=== PATIENT | male | born 1995 | race Caucasian/White ===

== ENCOUNTER 2020-07-16 09:27 | Outpatient (NON) | payer OTHER, SELFPAY ==
[2020-07-16 23:32] LABS: SARS-CoV-2 RNA PCR Negative
== END 2020-07-16 09:28 ==
LOC: ANHCOVIDDT 09:28
PROVIDERS: PCP Internal Medicine Geriatric Medicine; Visit Provider Internal Medicine Geriatric Medicine
DX: Z20.828 Contact with and (suspected) exposure to other viral communicable diseases (principal)
CPT/HCPCS: 87635; C9803; U0003

== ENCOUNTER 2023-03-19 00:05 | Emergency (ER) | payer OTHER, SELFPAY ==
[2023-03-19 00:07] VITALS: BP 136/95; PULSE 87; RESP 15; TEMP 36.6; O2SAT 98
--- NOTE | 2023-03-19 00:29 | ED.GENADULT ---
HPI - General Adult General Chief complaint: Wound/Laceration Stated complaint: cut finger Time Seen by Provider: 03/19/23 00:17 Source: patient Mode of arrival: ambulatory Limitations: no limitations History of Present Illness HPI narrative: This is a 27-year-old male who presents to the ED with chief complaint of a right index finger injury occurring just prior to arrival. Patient states he was placing a wire with a pocket knife when he accidentally cut the dorsum of his finger. Patient states that there was a lot of bleeding at the time and he bled through several Band-Aids. He then presented to the ER for further evaluation. Denies any numbness, weakness or any further site of pain or injury. Unsure of last tetanus shot. Related Data Allergies Allergy/AdvReac Type Severity Reaction Status Date / Time No Known Allergies Allergy Mild Verified 03/19/23 00:19 Review of Systems Review of Systems: All systems as dictated in HPI Exam Narrative: GENERAL: Well-appearing, well-nourished, and in no acute distress. HEAD: Normocephalic, atraumatic. EYES: PERRLA and EOMI. ENT: Nares clear, no rhinorrhea or epistaxis. Mucous membranes moist. Oropharynx without tonsillar hypertrophy exudate or other lesions. NECK: Supple. No adenopathy or masses. CHEST: No respiratory distress. Clear to auscultation. No wheezes rales or rhonchi HEART: Regular rate and rhythm. No murmur heard. Normal peripheral pulses. ABDOMEN: Soft, nontender, nondistended, normal active bowel sounds. MSK: Normal range of motion. No edema. SKIN: 1 cm laceration to the dorsum of the right index finger. Bleeding controlled. Neurovascular intact distally. No tenderness. Warm, dry, no rash. NEURO: Alert and oriented x3. No focal deficits. PSYCH: Normal mood and affect. Course Vital Signs Vital signs: Vital Signs Temperature 97.9 F 03/19/23 00:07 Pulse Rate 87 03/19/23 00:07 Respiratory Rate 15 03/19/23 00:07 Blood Pressure 136/95 H 03/19/23 00:07 Pulse Oximetry 98 03/19/23 00:07 Oxygen Delivery Room Air 03/19/23 00:07 Temperature 97.9 F 03/19/23 00:07 Pulse Rate 87 03/19/23 00:07 Respiratory Rate 15 03/19/23 00:07 Blood Pressure 136/95 H 03/19/23 00:07 Pulse Oximetry 98 03/19/23 00:07 Oxygen Delivery Room Air 03/19/23 00:07 Procedures Laceration Laceration 1: Date: 03/19/23 Time: 00:47 Site: hand Side (If applicable): right Size (cm): 1 Description: linear Depth: simple, single layer Local Anesthetic: none Pre-repair: irrigated and deep structures intact ====== Skin Level ====== Skin layer closed with: dermabond ====== Subcutaneous Layer ====== ====== Muscle Layer ====== ====== Tendon Layer ====== Dressing: None Medical Decision Making MDM Narrative Medical decision making narrative: This is a 27-year-old male who presents to the ED with chief complaint of right index finger laceration occurring just prior to arrival. Vitals are normal. Exam reveals a 1 cm laceration to the dorsum of the right finger with bleeding controlled. His Tdap was updated today. I flushed and cleaned the wound here in the department. The wound is very well-approximated on my exam so Dermabond was applied. Instructed to watch out for signs of infection. Finger splint given for the next day or so as the cut is near a joint. He will be discharged in stable condition. Return precautions given and supportive measures discussed. Patient is understanding and agreeable with plan for discharge and follow-up with PCP. Vital Signs Vital Signs: Vital Signs Temperature 97.9 F 03/19/23 00:07 Pulse Rate 87 03/19/23 00:07 Respiratory Rate 15 03/19/23 00:07 Blood Pressure 136/95 H 03/19/23 00:07 Pulse Oximetry 98 03/19/23 00:07 Oxygen Delivery Room Air 03/19/23 00:07 Temperature 97.9 F 03/19/23 00
[2023-03-19] MEDS: TETANUS,DIPHTHERIA,AC PERTUSSIS ADULT (0.5 ML) BOOSTRIX IM (00:48)
== END 2023-03-19 01:20 | disposition home or self-care (01) ==
PROVIDERS: Emergency Provider Physician Assistant; PCP Internal Medicine Geriatric Medicine
DX: S61.210A Laceration without foreign body of right index finger without damage to nail, initial encounter (principal); Z23 Encounter for immunization; W26.0XXA Contact with knife, initial encounter
CPT/HCPCS: 12001; 90471; 90715; 99282